=== PATIENT | female | born 1970 | race Hispanic/Latino ===

== ENCOUNTER 2017-04-02 14:57 | Emergency (ER) | payer OTHER ==
[2017-04-02 15:09] VITALS: BP 144/78; PULSE 98; RESP 20; TEMP 99.2; O2SAT 98
--- NOTE | 2017-04-02 15:54 | ED PDOC ---
Lower Extremity Pain/Injury Time Seen by Provider: 04/02/17 15:13 Chief Complaint (Nursing): Lower Extremity Problem/Injury Chief Complaint (Provider): Lower Extremity Problem/Injury History Per: Patient History/Exam Limitations: no limitations Onset/Duration Of Symptoms: Days (x5 days) Additional Complaint(s): 46 y/o female presents to the emergency department with a complaint of swelling to the left lower leg and upper right thigh pain since , 03/29/2017. Patient states she is concerned due to history of Deep Vein Thrombosis. Reports she bought size 10 shoes which were slightly tight and believes that is why she is experiencing pain. Denies any further medical complaints. Past Medical History Reviewed: Historical Data, Nursing Documentation, Vital Signs Vital Signs: Last Vital Signs Temp 99.2 F 04/02/17 15:04 Pulse 98 H 04/02/17 15:04 Resp 20 04/02/17 15:04 BP 144/78 04/02/17 15:04 Pulse Ox 98 04/02/17 15:04 - Medical History PMH: Deep Vein Thrombosis (right leg) - Surgical History Surgical History: No Surg Hx - Family History Family History: States: Unknown Family Hx - Social History Current smoker - smoking cessation education provided: No Alcohol: None Drugs: Denies - Allergies Allergies/Adverse Reactions: Allergies Allergy/AdvReac Type Severity Reaction Status Date / Time Penicillins Allergy Mild RASH Verified 04/02/17 15:09 Review of Systems ROS Statement: Except As Marked, All Systems Reviewed And Found Negative Musculoskeletal: Positive for: Leg Pain (Left lower leg edema), Other (Upper right thigh pain) Physical Exam - Reviewed Nursing Documentation Reviewed: Yes Vital Signs Reviewed: Yes - Physical Exam Appears: Positive for: Non-toxic, No Acute Distress Head Exam: Positive for: ATRAUMATIC, NORMAL INSPECTION, NORMOCEPHALIC Skin: Positive for: Normal Color, Warm, Dry Eye Exam: Positive for: Normal appearance ENT: Positive for: Normal ENT Inspection Extremity: Positive for: Normal ROM. Negative for: Tenderness, Calf Tenderness , Swelling (No lower leg edema noted ), Other (No palpable masses. No erythema of the legs bilaterally. No lesions noted. ) Neurologic/Psych: Positive for: Alert, Oriented - ECG O2 Sat by Pulse Oximetry: 98 (RA) Pulse Ox Interpretation: Normal Medical Decision Making Medical Decision Making: Time: 15:46 Initial Impression: Lower extremities problem Initial Plan: --Duplex Lower Extrm Vein Bilat (US) US (-) for DVT Scribe Attestation: Documented by Lisa Irizarry, acting as a scribe for Lisa Vinson PA-C. Provider Scribe Attestation: All medical record entries made by the Scribe were at my direction and personally dictated by me. I have reviewed the chart and agree that the record accurately reflects my personal performance of the history, physical exam, medical decision making, and the department course for this patient. I have also personally directed, reviewed, and agree with the discharge instructions and disposition. Disposition - Clinical Impression Clinical Impression: Lower leg edema - Disposition Referrals: [facility] [Outside] Disposition: Routine/Home Disposition Time: 16:27 Condition: GOOD Instructions: Leg Edema (ED)
--- NOTE | 2017-04-02 16:27 | US ---
PROCEDURE: Bilateral lower extremity venous duplex Doppler. HISTORY: Left lower leg swelling, history of DVT COMPARISON: None available. TECHNIQUE: Bilateral common femoral, superficial femoral, popliteal and posterior tibial veins were evaluated. Flow was assessed with color Doppler, compressibility, assessment of phasic flow and augmentation response. FINDINGS: COMMON FEMORAL VEIN: Right CFV: Unremarkable. Left CFV: Unremarkable. SUPERFICIAL FEMORAL VEIN: Right SFV: Unremarkable. Left SFV: Unremarkable. POPLITEAL VEIN: Right Popliteal: Unremarkable. Left Popliteal: Unremarkable. POSTERIOR TIBIAL VEIN: Right PTV: Unremarkable. Left PTV: Unremarkable. OTHER FINDINGS: None. IMPRESSION: No evidence of deep venous thrombosis.
== END 2017-04-02 16:44 | disposition home or self-care (01) ==
LOC: H.ER 14:57
DX: R60.0 Localized edema (principal); Z86.718 Personal history of other venous thrombosis and embolism

== ENCOUNTER 2017-04-18 11:19 | Emergency (ER) | payer OTHER ==
[2017-04-18 11:36] VITALS: BP 133/84; PULSE 90; RESP 18; TEMP 98; O2SAT 98
--- NOTE | 2017-04-18 13:42 | ED PDOC ---
HPI: SOB/CHF/COPD Time Seen by Provider: 04/18/17 12:49 Chief Complaint (Nursing): Shortness Of Breath Chief Complaint (Provider): Shortness of Breath History Per: Patient History/Exam Limitations: no limitations Onset/Duration Of Symptoms: Days (2 days) Current Symptoms Are (Timing): Still Present Associated Symptoms: denies: Fever, Chest Pain Additional Complaint(s): Annamaria Schwartz, a 46 year old female, who has a past medical history of deep vein thrombosis, Paroxysmal nocturnal hemoglobinuria and aplastic anemia presents to the ED complaining of shortness of breath x2 days. The patient reports she has had shallow breathing and is also feeling lightheaded. She further states that she had a blood transfusion in 2011. Denies chest pain, cough, palpitations, fever, new leg swelling. Of note: Patient is taking Xarelto. Past Medical History Reviewed: Historical Data, Nursing Documentation, Vital Signs Vital Signs: Last Vital Signs Temp 98 F 04/18/17 11:33 Pulse 90 04/18/17 11:33 Resp 18 04/18/17 11:33 BP 133/84 04/18/17 11:33 Pulse Ox 98 04/18/17 17:19 - Medical History PMH: Anemia (Aplastic anemia), Deep Vein Thrombosis (right leg) Other PMH: Paroxysmal nocturnal hemoglobinuria - Family History Family History: States: Unknown Family Hx - Allergies Allergies/Adverse Reactions: Allergies Allergy/AdvReac Type Severity Reaction Status Date / Time Penicillins Allergy Mild RASH Verified 04/18/17 11:33 Review of Systems ROS Statement: Except As Marked, All Systems Reviewed And Found Negative Constitutional: Negative for: Fever Cardiovascular: Positive for: Light Headedness. Negative for: Chest Pain, Palpitations Respiratory: Positive for: Shortness of Breath (shallow breathing). Negative for: Cough Physical Exam - Reviewed Nursing Documentation Reviewed: Yes Vital Signs Reviewed: Yes - Physical Exam Appears: Positive for: Non-toxic, No Acute Distress Head Exam: Positive for: ATRAUMATIC, NORMAL INSPECTION, NORMOCEPHALIC Skin: Positive for: Normal Color, Warm, Dry Eye Exam: Positive for: Normal appearance, EOMI, PERRL ENT: Positive for: Normal ENT Inspection Neck: Positive for: Normal, Painless ROM, Supple Respiratory: Positive for: Normal Breath Sounds, Decreased Breath Sounds. Negative for: Wheezing, Respiratory Distress Gastrointestinal/Abdominal: Positive for: Normal Exam, Bowel Sounds, Soft. Negative for: Tenderness, Guarding, Rebound Back: Positive for: Normal Inspection. Negative for: L CVA Tenderness, R CVA Tenderness Extremity: Positive for: Normal ROM. Negative for: Tenderness, Pedal Edema, Deformity, Swelling (No leg swelling.) Neurologic/Psych: Positive for: Alert, Oriented, Gait - Laboratory Results Result Diagrams: 04/18/17 13:10 04/18/17 13:10 - ECG O2 Sat by Pulse Oximetry: 98 (RA) Pulse Ox Interpretation: Normal Medical Decision Making Medical Decision Makin:49 Initial Impression: 46 year old female presenting with shortness of breath Initial Plan: * ABO/RH type * Type and Screen * EKG * Comp Metabolic * CBC * D-Dimer * PTT * Prothrombin time * CXR * US Duplex Lower Extremity * Reevaluation Scribe Attestation Documented by Sania Adames acting as a scribe for Jessica Noel MD. Provider Attestation All medical record entries made by the Scribe were at my direction and personally dictated by me. I have reviewed the chart and agree that the record accurately reflects my personal performance of the history, physical exam, medical decision making, and the department course for this patient. I have also personally directed, reviewed, and agree with the discharge instructions and disposition. Disposition - Clinical Impression Clinical Impression: Dyspnea - Disposition Referrals: [facility] [Outside] Disposition: Transfer of Care Disposition Time: 17:00 Condition: STABLE Instructions: Pulmonary Embolism (DC) Patient Signed Over To: Anatoly Contreras Handoff Comments: Pending CT.
[2017-04-18 14:03] LABS: BASO % 0.6 % (0.0-2.0); EOS % 0.9 % (0.0-4.0); HEMOGLOBIN 9.7 g/dL (12.0-16.0); LYMPH % 35.8 % (20.0-40.0); MEAN CELL VOLUME 107.4 fl (81.0-99.0); MEAN CORPUSCULAR HEMOGLOBIN 35.3 pg (27.0-31.0); MEAN CORPUSCULAR HGB CONC 32.9 g/dL (33.0-37.0); MEAN PLATELET VOLUME 9.2 fl (7.2-11.7); MONO # 0.3 K/uL (0.0-0.8); MONO % 11.1 % (0.0-10.0); NEUT # 1.5 K/uL (1.8-7.0); NEUT % 51.6 % (50.0-75.0); RBC 2.74 Mil/uL (3.80-5.20); RED CELL DISTRIBUTION WIDTH 16.7 % (11.5-14.5); WHITE BLOOD COUNT 2.8 K/uL (4.8-10.8)
--- NOTE | 2017-04-18 14:05 | RAD ---
HISTORY: Shortness of breath COMPARISON: No prior. TECHNIQUE: Chest PA and lateral FINDINGS: LUNGS: The lungs are well inflated and clear. PLEURA: No significant pleural effusion identified. No pneumothorax apparent. CARDIOVASCULAR: Normal. OSSEOUS STRUCTURES: No significant abnormalities. VISUALIZED UPPER ABDOMEN: Normal. OTHER FINDINGS: None. IMPRESSION: No active pulmonary disease.
[2017-04-18 14:08] LABS: ALB/GLOB RATIO 1.4 (1.0-2.1); ALBUMIN 4.2 g/dL (3.5-5.0); ALT/SGPT 37 U/L (9-52); AST/SGOT 74 U/L (14-36); BLOOD UREA NITROGEN 17 mg/dl (7-17); CALCIUM 9.2 mg/dL (8.4-10.2); GFR AFRICAN-AMERICAN > 60; GFR NON-AFRICAN AMERICAN > 60
[2017-04-18 14:32] LABS: INR 0.9 (0.9-1.2); PARTIAL THROMBOPLASTIN TIME 26.9 Seconds (25.6-37.1); PROTHROMBIN TIME 10.2 Seconds (9.8-13.1)
--- NOTE | 2017-04-18 16:10 | US ---
PROCEDURE: Bilateral lower extremity venous duplex Doppler. HISTORY: Shortness of breath COMPARISON: None available. TECHNIQUE: Bilateral common femoral, superficial femoral, popliteal and posterior tibial veins were evaluated. Flow was assessed with color Doppler, compressibility, assessment of phasic flow and augmentation response. FINDINGS: COMMON FEMORAL VEIN: Right CFV: Normal flow and compressibility. Left CFV: Normal flow and compressibility. SUPERFICIAL FEMORAL VEIN: Right SFV: Normal flow and compressibility. Left SFV: Normal flow and compressibility. POPLITEAL VEIN: Right Popliteal: Normal flow and compressibility. Left Popliteal: Normal flow and compressibility. POSTERIOR TIBIAL VEIN: Right PTV: Normal flow and compressibility. Left PTV: Normal flow and compressibility. OTHER FINDINGS: None. IMPRESSION: No evidence of deep venous thrombosis.
--- NOTE | 2017-04-18 16:11 | CARD ---
APPROVED REPORT EKG Measurement Heart [id number] TX [id number] <Conclusion> Suspect arm lead reversal, interpretation assumes no reversal Unusual P axis, possible ectopic atrial rhythm Left posterior fascicular block Abnormal ECG
[2017-04-18] MEDS ORDERED: Iodixanol 320 MG/ML 100 ML BOTTLE IV ONE (16:28)
[2017-04-18] MEDS ORDERED: Sodium Chloride 0.9% 0 ML IV ONE (16:29)
--- NOTE | 2017-04-18 17:18 | ED PDOC ---
- Laboratory Results Result Diagrams: 04/18/17 13:10 04/18/17 13:10 - ECG O2 Sat by Pulse Oximetry: 98 (RA) Medical Decision Making Medical Decision Making: Pt advised to have CTA chest to rule out blood clot in lungs as she is at high risk for developing PE. Pt aware of risks icluding PE and but wants to sign AMA Disposition - Clinical Impression Clinical Impression: Dyspnea - POA Present On Arrival: None - Disposition Referrals: [facility] [Outside] Disposition: AGAINST MEDICAL ADVICE Disposition Time: 17:18 Condition: FAIR Instructions: Pulmonary Embolism (DC)
== END 2017-04-18 17:53 | disposition home or self-care (01) ==
LOC: H.ER 11:19
DX: R06.00 Dyspnea, unspecified (principal); Z86.72 Personal history of thrombophlebitis; D61.9 Aplastic anemia, unspecified; R42 Dizziness and giddiness

== ENCOUNTER 2017-07-17 19:43 | Observation (INO) | payer OTHER ==
--- NOTE | 2017-07-17 21:06 | ED PDOC ---
HPI: Abdomen Time Seen by Provider: 07/17/17 20:10 Chief Complaint (Nursing): GI Problem Chief Complaint (Provider): Blood in stool History Per: Patient History/Exam Limitations: no limitations Onset/Duration Of Symptoms: Intermittent Episodes Current Symptoms Are (Timing): Still Present Quality Of Discomfort: Gas, Other (Feels bloate) Additional Complaint(s): Annamaria is a 47 y/o female with a past medical history of paroxysmal nocturnal hemoglobinuria (PNH) who presents to the ED complaining of hematochezia, occurring intermittently over the past month. Also complaining of constipation and gas. Denies abdominal pain, vomiting, nausea, diarrhea, and fever. States that she has felt fatigued recently as well. She reports taking 20 mg of Xarelto daily for her PNH. Of note, patient is requesting that her marking machine operator be called. Weigh Machine Operator: Dr. Jovi Diaz at [facility] [phone] Past Medical History Reviewed: Historical Data, Nursing Documentation, Vital Signs Vital Signs: Last Vital Signs Temp 98 F 07/17/17 19:50 Pulse 113 H 07/17/17 19:50 Resp 18 07/17/17 19:50 BP 154/99 H 07/17/17 19:50 Pulse Ox 98 07/17/17 23:14 - Medical History PMH: Anemia (Aplastic anemia), Deep Vein Thrombosis (right leg), Malignancy ( uterine cancer) Other PMH: Paroxysmal nocturnal hemoglobinuria, bone marrow failure - Surgical History Other surgeries: Hysterectomy - Family History Family History: States: Unknown Family Hx - Social History Current smoker - smoking cessation education provided: No Alcohol: None Drugs: Denies - Home Medications Home Medications: Ambulatory Orders Medication Instructions Recorded Rivaroxaban [Xarelto] 20 mg PO DAILY 07/17/17 - Allergies Allergies/Adverse Reactions: Allergies Allergy/AdvReac Type Severity Reaction Status Date / Time Penicillins Allergy Mild RASH Verified 07/17/17 19:50 Review of Systems ROS Statement: Except As Marked, All Systems Reviewed And Found Negative Constitutional: Positive for: Other (Fatigue). Negative for: Fever Respiratory: Negative for: Cough, Shortness of Breath Gastrointestinal: Positive for: Constipation, Hematochezia, Other (Gas, bloating ). Negative for: Nausea, Vomiting, Abdominal Pain, Diarrhea Physical Exam - Reviewed Nursing Documentation Reviewed: Yes Vital Signs Reviewed: Yes - Physical Exam Appears: Positive for: Non-toxic, No Acute Distress Head Exam: Positive for: ATRAUMATIC, NORMAL INSPECTION, NORMOCEPHALIC Skin: Positive for: Normal Color, Warm, Dry Eye Exam: Positive for: EOMI, Normal appearance, PERRL Neck: Positive for: Normal, Supple Cardiovascular/Chest: Positive for: Regular Rate, Rhythm. Negative for: Murmur Respiratory: Positive for: Normal Breath Sounds. Negative for: Accessory Muscle Use, Respiratory Distress Gastrointestinal/Abdominal: Positive for: Normal Exam, Soft. Negative for: Tenderness Extremity: Positive for: Normal ROM. Negative for: Pedal Edema, Deformity Neurologic/Psych: Positive for: Alert, Oriented - Laboratory Results Result Diagrams: 07/17/17 21:11 07/17/17 21:11 - ECG O2 Sat by Pulse Oximetry: 98 (RA) Pulse Ox Interpretation: Normal Medical Decision Making Medical Decision Making: Time: 20:48 Initial Plan: --Blood type and screen --CMP --CBC --Guiac stool test --Pending reevaluation Time: 22:10 --Spoke with Dr. Lacy, who knows patient well. Labs were reviewed. Due to possible GI bleed, He requested we order iron studies, discontinue Xarelto for now, and if we need to transfuse, need to transfuse with the exact blood type of patient, transfuse with an irradiated salted blood product, Also requesting patient be admitted with GI and Hematology consults. Dr Villasenor accepted admission pt aware of admission Scribe Attestation: Documented by Basilia Michelle, acting as a scribe for Carline Kent MD Provider Scribe Attestation: All medical record entries made by the Scribe were at my direction and personally dictated by me. I have reviewed the chart and agree that the record accurately reflects my personal performance of the history, physical exam, medical decision making, and the department course for this patient. I have also personally directed, reviewed, and agree with the discharge instructions and disposition. Disposition - Disposition Forms: [employer] (Kiswahili)
[2017-07-17 21:21] LABS: BASO % 0.9 % (0.0-2.0); EOS # 0.1 K/uL (0.0-0.7); EOS % 1.2 % (0.0-4.0); HEMATOCRIT 30.8 % (34.0-47.0); LYMPH % 46.4 % (20.0-40.0); MEAN CELL VOLUME 107.7 fl (81.0-99.0); MEAN CORPUSCULAR HEMOGLOBIN 35.7 pg (27.0-31.0); MEAN CORPUSCULAR HGB CONC 33.1 g/dL (33.0-37.0); MEAN PLATELET VOLUME 9.9 fl (7.2-11.7); MONO # 0.4 K/uL (0.0-0.8); MONO % 9.8 % (0.0-10.0); NEUT # 1.8 K/uL (1.8-7.0); NEUT % 41.7 % (50.0-75.0); NRBC % 0.1 % (0.0-0.0); RED CELL DISTRIBUTION WIDTH 16.4 % (11.5-14.5); WHITE BLOOD COUNT 4.3 K/uL (4.8-10.8)
[2017-07-17 21:32] LABS: ALB/GLOB RATIO 1.5 (1.0-2.1); ALKALINE PHOSPHATASE 82 U/L (38-126); ALT/SGPT 32 U/L (9-52); AST/SGOT 81 U/L (14-36); BILIRUBIN,TOTAL 1.5 mg/dl (0.2-1.3); BLOOD UREA NITROGEN 16 mg/dl (7-17); CALCIUM 9.1 mg/dL (8.4-10.2); CARBON DIOXIDE 27 mmol/L (22-30); CHLORIDE 104 mmol/L (98-107); GFR AFRICAN-AMERICAN > 60; GLUCOSE,RANDOM 93 mg/dL (65-105); POTASSIUM 4.3 MMOL/L (3.6-5.0); SODIUM 143 mmol/l (132-148); TOTAL PROTEIN 7.4 G/DL (6.3-8.2)
[2017-07-18 01:39] LABS: IRON < 10 ug/dL (37-170)
[2017-07-18 07:37] VITALS: BP 116/78; PULSE 77; RESP 20; TEMP 97.7; O2SAT 18
[2017-07-18 08:48] LABS: HEMATOCRIT 28.4 % (34.0-47.0); MEAN CELL VOLUME 106.8 fl (81.0-99.0); MEAN CORPUSCULAR HEMOGLOBIN 35.9 pg (27.0-31.0); MEAN CORPUSCULAR HGB CONC 33.6 g/dL (33.0-37.0); RED CELL DISTRIBUTION WIDTH 16.2 % (11.5-14.5); WHITE BLOOD COUNT 2.9 K/uL (4.8-10.8)
--- NOTE | 2017-07-18 12:51 | CP.PCM.CON ---
History of Present Illness - History of Present Illness History of Present Illness: This is a 47 yrs old female who was admitted with rectal bleeding. She has had some rectal bleeding off and on for the past i week . At times it was just a little but yesterday she saw a fir amount of blood in the toilet bowl. There is no pain in the abdomen but she feels gassy. No h/o diverticulitis. she has a h/o PNH since 2011 . She has not received any treatment for the same because her count has been more or less in the normal range. After admission her hgb was 9.5 gms with a platelet count of 89K and WBC of 2.9. She has also had periods of hemolysis off and on which is part of the disease process This time her retic was 5.8 with bilirubin of 1.5. LDH and haptoglobin is pending. She is also waiting to see the Syrup Blender. She had a fracture of her 5th metatarsal and had to wear a boot for a while, so the immobilisation caused her to have a DVT or the right lower extremity. She was plaxced on the xarelto, but was discontinued on admission because of trhe gi bleed. She also has a h/o early endometrial cancer for which she had a a hysterectomy with bilat salpingo oophrectomy No other treatment was needed. Past Patient History - Past Medical History & Family History Past Medical History?: Yes - Past Social History Smoking Status: Never Smoked - CARDIAC Hx Cardiac Disorders: No - PULMONARY Hx Respiratory Disorders: No - NEUROLOGICAL Hx Neurological Disorder: No - HEMATOLOGICAL/ONCOLOGICAL Hx Blood Disorders: Yes Other/Comment: PNH, uterine cancer, bone marrow failure - MUSCULOSKELETAL/RHEUMATOLOGICAL Hx Falls: Yes - GENITOURINARY/GYNECOLOGICAL Hx Uterine Cancer: Yes Other/Comment: hx; pnh - PSYCHIATRIC Hx Substance Use: No - SURGICAL HISTORY Hx Hysterectomy: Yes - ANESTHESIA Hx Anesthesia: Yes Hx Anesthesia Reactions: No Meds Allergies/Adverse Reactions: Allergies Allergy/AdvReac Type Severity Reaction Status Date / Time Penicillins Allergy Mild RASH Verified 07/17/17 19:50 - Medications Medications: Current Medications Dextrose/Sodium Chloride (Dextrose 5%-0.45% Ns 500 Ml) 500 mls @ 100 mls/hr IV .Q5H ESTEBAN Stop: 07/19/17 06:49 Last Admin: 07/18/17 08:53 Dose: 100 mls/hr Pantoprazole Sodium (Protonix Inj) 40 mg IVP Q12 ESTEBAN Last Admin: 07/18/17 09:39 Dose: 40 mg Physical Exam - Additional Findings Additional findings: Physical exam; Alert,well oriented in no acute distress. neck; Suppkle, rashi adenopathy Chest; clear, no rales or rhonchi Heart; RSR, no murmur Abdomen; Soft, no mass, no h/s megaly Results - Vital Signs Recent Vital Signs: Last Vital Signs Temp 97.7 F 07/18/17 07:36 Pulse 77 07/18/17 07:36 Resp 20 07/18/17 07:36 BP 116/78 07/18/17 07:36 Pulse Ox 18 L 07/18/17 07:36 - Labs Result Diagrams: 07/18/17 08:00 07/17/17 21:11 Labs: Laboratory Results - last 24 hr 07/17/17 07/17/17 07/17/17 21:11 21:11 21:11 WBC 4.3 L D RBC 2.86 L Hgb 10.2 L Hct 30.8 L MCV 107.7 H MCH 35.7 H MCHC 33.1 RDW 16.4 H Plt Count 117 L D MPV 9.9 Neut % (Auto) 41.7 L Lymph % (Auto) 46.4 H School[place] % (Auto) 9.8 Eos % (Auto) 1.2 Baso % (Auto) 0.9 Neut # 1.8 Lymph # 2.0 Schoolcraft # 0.4 Eos # 0.1 Baso # 0.0 Retic Count Sodium 143 Potassium 4.3 Chloride 104 Carbon Dioxide 27 Anion Gap 17 BUN 16 Creatinine 0.9 Est GFR ( Amer) > 60 Est GFR (Non-Af Amer) > 60 Random Glucose 93 Calcium 9.1 Iron TIBC % Saturation Total Bilirubin 1.5 H AST 81 H ALT 32 Alkaline Phosphatase 82 Lactate Dehydrogenase Total Protein 7.4 Albumin 4.5 Globulin 3.0 Albumin/Globulin Ratio 1.5 Stool Occult Blood Blood Type A POSITIVE Antibody Screen Negative BBK History Checked Patient has bt 07/17/17 07/17/17 07/17/17 22:57 23:03 23:03 WBC RBC Hgb Hct MCV MCH MCHC RDW Plt Count MPV Neut % (Auto) Lymph % (Auto) Schoolcraft % (Auto) Eos % (Auto) Baso % (Auto) Neut # Lymph # Schoolcraft # Eos # Baso # Retic Count 5.8 H Sodium Potassium Chloride Carbon Dioxide Anion Gap BUN Creatinine Est GFR ( Amer) Est GFR (Non-Af Amer) Random Glucose Calcium Iron < 10 L TIBC % Saturation Total Bilirubin AST ALT Alkaline Phosphatase Lactate Dehydrogenase Total Protein Albumin Globulin Albumin/Globulin Ratio Stool Occult Blood Negative Blood Type Antibody Screen BBK History Checked 07/18/17 07/18/17 07/18/17 00:30 08:00 09:50 WBC 2.9 L RBC 2.65 L Hgb 9.5 L Hct 28.4 L MCV 106.8 H MCH 35.9 H MCHC 33.6 RDW 16.2 H Plt Count 89 L D MPV Neut % (Auto) Lymph % (Auto) Schoolcraft % (Auto) Eos % (Auto) Baso % (Auto) Neut # Lymph # Schoolcraft # Eos # Baso # Retic Count Sodium Potassium Chloride Carbon Dioxide Anion Gap BUN Creatinine Est GFR ( Amer) Est GFR (Non-Af Amer) Random Glucose Calcium Iron < 10 L TIBC 159 L % Saturation 11 L Total Bilirubin AST ALT Alkaline Phosphatase Lactate Dehydrogenase 3389 H Total Protein Albumin Globulin Albumin/Globulin Ratio Stool Occult Blood Blood Type Antibody Screen BBK History Checked Assessment & Plan - Assessment and Plan (Free Text) Assessment: Impression; Paroxysmal nocturnal hemoglobinuria, stable disease. Lower Gi bleeding, etiology to be determined. H/O DVT after a right foot fracture Plan: Plan; Will continue to hold the xarelto for now. Have ordered LDH and Haptoglobin to see if there is much hemolysis Monitor CBC - Date & Time Date: 07/18/17 Time: 13:10
--- NOTE | 2017-07-18 15:08 | CP.PCM.PCO ---
Assessment/Plan - Assessment/Plan Assessment (Free Text): Pt stable, seen and cleared for d/c home by all consultants. Pt to f/u with own accountant budget in 1 week. Pt's to resume Xarelto per her own MD. Pt to f/u with Dr. Coronel on a outpatient basis. Pt aware to f/u with own MD to resume her meds. RN aware of plan.
--- NOTE | 2017-07-19 07:28 | DS ---
REASON FOR ADMISSION: This is a 47 years old white female with history of paroxysmal nocturnal hemoglobinuria, was on Xarelto, admitted for rectal bleeding. COURSE OF HOSPITALIZATION: The patient was admitted to medical floor and patient did not have any further bleeding as she was in the floor. The patient was seen by Hematology consult, Dr. Elina Simon and by GI consult, Dr. Ceasar Coronel. The patient was cleared for discharge, to have colonoscopy done as an outpatient and further recommendations as per new autos delivery driver in [facility]. The patient was discharged in stable condition and no further rectal bleeding. Tolerated regular diet. FINAL DIAGNOSES: 1. History of rectal bleeding with no active bleeding after admission. 2. History of paroxysmal nocturnal hemoglobinuria. Angeline MD Hamilton
--- NOTE | 2017-07-19 08:28 | CON ---
DATE OF SERVICE: 07/18/2017 REFERRING PHYSICIAN: Dr. Brown REASON FOR CONSULTATION: Anemia, rectal bleeding. HISTORY OF PRESENT ILLNESS: This is a 47-year-old female who has a history of paroxysmal nocturnal hematuria, being followed up by hematology over at [facility], comes in for episode of rectal bleeding after having a really particularly hard bowel movement. She has had some rectal bleeding now for the past week or so with chronic constipation . Denies any weight loss. No heartburn or reflux. Currently, lying in bed comfortably, in no apparent distress. The patient is currently on a blood thinner as well. PAST MEDICAL HISTORY: As above. PAST SURGICAL HISTORY: As above. MEDICATIONS: Have been reviewed. REVIEW OF SYSTEMS: All other systems have been reviewed and negative apart from the HPI. PHYSICAL EXAMINATION: VITAL SIGNS: In the hospital, grossly unremarkable. GENERAL: Pleasant elderly-appearing male, lying in bed comfortable, in no apparent distress. HEENT: Head is normocephalic and atraumatic. Eyes, pupils are equal, round, and reactive to light bilaterally. No conjunctival pallor or icterus. NECK: Supple. Normal range of motion. No lymphadenopathy appreciated. LUNGS: Coarse breath sounds bilaterally. HEART: S1 and S2, regular rate and rhythm. No murmurs appreciated. ABDOMEN: Soft, nontender, some fullness, but no pain. RECTAL: Deferred. EXTREMITIES: Pulses felt bilaterally. SKIN: Warm, dry, and intact. NEUROLOGIC: A and O x3. LABORATORY DATA: Labs reviewed, WBC 4.3, down to 2.9, hemoglobin 10.2, reticulocyte count 5.8, iron less than 10, LDH 389. ASSESSMENT AND PLAN: This is a 47-year-old female with anemia and rectal bleeding. The rectal bleeding is more likely due to the hemorrhoid as she is chronically constipation. She does warrant definitely having a colonoscopy and endoscopy at some point, but needs to be observed at least for 2 days, which she is agreeable to follow up with me as an outpatient to do so. From the standpoint of the anemia, I suspect this is much more insidious and chronic. There is pancytopenia as evidenced on the CBC as well as markedly elevated LDH. We will defer to Hematology for further workup and management. From a gastrointestinal standpoint, advance diet as tolerated, stool softeners as needed, and colonoscopy to be planned as an outpatient or sooner if the patient continues to bleed. Thank you for the consult. Ceasar Coronel MD/ PhD cc:
--- NOTE | 2017-07-20 08:28 | HP ---
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 The patient presented to emergency room for rectal bleeding x1. The patient was evaluated in the emergency room and the patient's financial health counselor in DCU was contacted by the ER physician. Xarelto was advised to be stopped and the patient was admitted for further management. The patient denied having abdominal pain, denied having any further rectal bleeding after admission. Other review of systems is negative. ALLERGIES: PENICILLIN. HOME MEDICATIONS: Includes Xarelto 20 mg daily. PAST MEDICAL HISTORY: As above. SOCIAL HISTORY: No history of smoking, ETOH, or substance abuse. FAMILY HISTORY: Noncontributory. PHYSICAL EXAMINATION: GENERAL: The patient is in bed, not in any cardiopulmonary distress. VITAL SIGNS: Blood pressure 127/84, temperature 97.8, respiratory rate 19, and pulse 83. HEENT: Pupils equal and reactive to light. Normal appearing mucosa of the conjunctivae, oropharyngeal, and nasal membrane mucosa. NECK: Supple. No JVD. No carotid bruit. No lymph node. No thyromegaly. CHEST AND LUNGS: Bilaterally symmetrical expansion with good air exchange. No rales. No rhonchi. CARDIOVASCULAR: PMI not localized. S1 and S2. No additional sounds. ABDOMEN: Normoactive bowel sounds. No tenderness. No organomegaly. No masses. EXTREMITIES: No cyanosis. No clubbing. No edema. CARDIOVASCULAR PHYSICIAN ASSISTANT: Alert, awake, and oriented x3. No neurological deficits could be appreciated. LABORATORY DATA: Hemoglobin dropped from 10.2 to 9.5. The patient did not have any active rectal bleeding at the time of this examination. ASSESSMENT: Rectal bleeding and the patient is on Xarelto for treatment as an anticoagulant as the patient has paroxysmal nocturnal hemoglobinuria. PLAN: GI consult. We will follow recommendation. Hematology consult. Monitor hemoglobin and hematocrit. Loan Villasenor MD
== END 2017-07-18 16:30 | disposition home or self-care (01) ==
LOC: H.ER 19:43 → H.ERHOLD 23:15 → H.MEDSURG1 07-18 00:55
PROVIDERS: ADMIT Internal Medicine; ATTEND Internal Medicine
DX: D59.5 Paroxysmal nocturnal hemoglobinuria [Marchiafava-Micheli] (principal); D61.818 Other pancytopenia; K59.00 Constipation, unspecified; Z86.718 Personal history of other venous thrombosis and embolism; Z87.81 Personal history of (healed) traumatic fracture; Z79.01 Long term (current) use of anticoagulants; Z85.42 Personal history of malignant neoplasm of other parts of uterus; Z90.710 Acquired absence of both cervix and uterus
CPT/HCPCS: 36415; 80053; 83010; 83540; 83550; 83615; 85025; 85027; 85044; 86850; 86900; 99283; C9113; G0328; G0378

== ENCOUNTER 2017-07-22 13:29 | Emergency (ER) | payer OTHER ==
[2017-07-22 13:50] VITALS: BP 150/82; PULSE 92; RESP 18; TEMP 98.8; O2SAT 99
[2017-07-22] MEDS ORDERED: Sodium Chloride 0.9% 1,000 ML IV STA (14:05)
--- NOTE | 2017-07-22 14:14 | ED PDOC ---
HPI: Abdomen Time Seen by Provider: 07/22/17 13:43 Chief Complaint (Nursing): GI Problem Chief Complaint (Provider): Blood in stool History Per: Patient History/Exam Limitations: no limitations Onset/Duration Of Symptoms: Days (x5) Current Symptoms Are (Timing): Still Present Additional Complaint(s): Annamaria Schwartz is a 47 y/o female who presents to the ED complaining of a small amount of bleeding in her stool, consistent since discharge last Sunday. Patient has a history of DVT, paroxysmal nocturnal hemoglobinuria, and aplastic anemia, and had been taking Xarelto until admission last week. Has not taken medication since discharge. Reports mild abdominal bloating, no pain. Feels tired and weak. PMD: Provider TBD Past Medical History Reviewed: Historical Data, Nursing Documentation, Vital Signs Vital Signs: Last Vital Signs Temp 98.8 F 07/22/17 13:44 Pulse 92 H 07/22/17 13:44 Resp 18 07/22/17 13:44 BP 150/82 07/22/17 13:44 Pulse Ox 99 07/22/17 15:58 - Medical History PMH: Anemia (Aplastic anemia), Deep Vein Thrombosis (right leg), Malignancy ( uterine cancer) Other PMH: paroxysmal nocturnal hemoglobinuria (PNH) - Surgical History Other surgeries: Hysterectomy - Family History Family History: States: Unknown Family Hx - Home Medications Home Medications: Ambulatory Orders Medication Instructions Recorded Rivaroxaban [Xarelto] 20 mg PO DAILY 07/17/17 - Allergies Allergies/Adverse Reactions: Allergies Allergy/AdvReac Type Severity Reaction Status Date / Time Penicillins Allergy Mild RASH Verified 07/22/17 13:59 Review of Systems ROS Statement: Except As Marked, All Systems Reviewed And Found Negative Constitutional: Positive for: Weakness (generalized) Gastrointestinal: Positive for: Hematochezia, Other (abdominal bloating). Negative for: Vomiting, Abdominal Pain, Diarrhea Physical Exam - Reviewed Nursing Documentation Reviewed: Yes Vital Signs Reviewed: Yes - Physical Exam Appears: Positive for: Non-toxic, No Acute Distress Head Exam: Positive for: ATRAUMATIC, NORMOCEPHALIC Skin: Positive for: Normal Color, Warm, Dry Eye Exam: Positive for: EOMI, Normal appearance, PERRL Neck: Positive for: Normal, Painless ROM, Supple Cardiovascular/Chest: Positive for: Regular Rate, Rhythm. Negative for: Murmur Respiratory: Positive for: Normal Breath Sounds. Negative for: Accessory Muscle Use, Respiratory Distress Gastrointestinal/Abdominal: Positive for: Soft, Tenderness (mild tenderness to lower quadrants bilaterally) Extremity: Positive for: Normal ROM. Negative for: Tenderness, Calf Tenderness , Deformity, Swelling Neurologic/Psych: Positive for: Alert, Oriented (x3). Negative for: Motor/ Sensory Deficits - Laboratory Results Result Diagrams: 07/22/17 14:35 07/22/17 14:45 - ECG O2 Sat by Pulse Oximetry: 99 (RA) Pulse Ox Interpretation: Normal Medical Decision Making Medical Decision Making: Time: 14:05 Initial Plan: --EKG --CMP --CBC w/ differential --Prothrombin time --NS IV 1000 ml at 100 mls/hr Patient reports she was supposed to be scheduled for outpatient colonoscopy upon discharge last week. She requests to have colonoscopy moved up to tomorrow , as inpatient procedure. Patient has been unable to follow up with space control supervisor at [facility], and is questioning when to resume taking Xarelto. Time: 15:15 --Discussed case with Dr. Villasenor, who reports he will only admit patient if colonoscopy will be scheduled tomorrow with GI specialist. Time: 15:30 --Paged Dr. Coronel for GI consult Time: 15:43 --Call returned by Dr. Coronel, who recommends to keep colonoscopy as outpatient procedure, which will be scheduled mid-week. Discussed with Dr. Mckayla Gonzalez/Onc [facility]. Will see pt in office tomorrow 9AM. Discussed with Dr Coronel, pt can be discharged and he will arrange to do colonoscopy with pt. Scribe Attestation: Documented by Basilia Michelle, acting as a scribe for Anatoly Contreras MD Provider Scribe Attestation: All medical record entries made by the Scribe were at my direction and personally dictated by me. I have reviewed the chart and agree that the record accurately reflects my personal performance of the history, physical exam, medical decision making, and the department course for this patient. I have also personally directed, reviewed, and agree with the discharge instructions and disposition. Disposition - Clinical Impression Clinical Impression: GI bleed - Patient ED Disposition Is Patient to be Admitted: No Counseled Patient/Family Regarding: Studies Performed, Diagnosis, Need For Followup - Disposition Disposition: Routine/Home Disposition Time: 16:13 Condition: FAIR Additional Instructions: Follow up with Dr. Block in office tomorrow 9AM Instructions: Gastrointestinal Bleeding (ED) Forms: [employer] (Italian)
[2017-07-22 14:41] LABS: BASO % 0.4 % (0.0-2.0); EOS % 0.9 % (0.0-4.0); HEMATOCRIT 27.9 % (34.0-47.0); LYMPH # 1.6 K/uL (1.0-4.3); LYMPH % 46.7 % (20.0-40.0); MEAN CELL VOLUME 107.2 fl (81.0-99.0); MEAN CORPUSCULAR HGB CONC 33.6 g/dL (33.0-37.0); MEAN PLATELET VOLUME 9.3 fl (7.2-11.7); MONO # 0.4 K/uL (0.0-0.8); MONO % 10.4 % (0.0-10.0); NEUT # 1.4 K/uL (1.8-7.0); NEUT % 41.6 % (50.0-75.0); NRBC % 0.1 % (0.0-0.0); RED CELL DISTRIBUTION WIDTH 16.9 % (11.5-14.5); WHITE BLOOD COUNT 3.4 K/uL (4.8-10.8)
[2017-07-22 14:50] LABS: ALB/GLOB RATIO 1.5 (1.0-2.1); ALKALINE PHOSPHATASE 70 U/L (38-126); ALT/SGPT 30 U/L (9-52); AST/SGOT 68 U/L (14-36); BILIRUBIN,TOTAL 1.2 mg/dl (0.2-1.3); BLOOD UREA NITROGEN 15 mg/dl (7-17); CALCIUM 8.9 mg/dL (8.4-10.2); CARBON DIOXIDE 28 mmol/L (22-30); CHLORIDE 108 mmol/L (98-107); GFR AFRICAN-AMERICAN > 60; GLUCOSE,RANDOM 98 mg/dL (65-105); SODIUM 144 mmol/l (132-148); TOTAL PROTEIN 6.7 G/DL (6.3-8.2)
--- NOTE | 2017-07-23 10:19 | CARD ---
APPROVED REPORT EKG Measurement Heart [id number] <Conclusion> Normal sinus rhythm Normal ECG
== END 2017-07-22 16:32 | disposition home or self-care (01) ==
LOC: H.ER 13:29
DX: K92.2 Gastrointestinal hemorrhage, unspecified (principal); D61.9 Aplastic anemia, unspecified
CPT/HCPCS: 80053; 85025; 85610; 93005; 96360; 96361; 99283; J7040

== ENCOUNTER 2017-09-19 06:56 | Emergency (ER) | payer OTHER ==
[2017-09-19 07:17] VITALS: BP 123/84; RESP 22; TEMP 97.9; O2SAT 99
[2017-09-19] MEDS ORDERED: Sodium Chloride 0.9% 1,000 ML IV STA (07:40)
--- NOTE | 2017-09-19 07:54 | ED PDOC ---
HPI: Headache Time Seen by Provider: 09/19/17 07:14 Chief Complaint (Nursing): Headache Chief Complaint (Provider): Headache History Per: Patient History/Exam Limitations: no limitations Onset/Duration Of Symptoms: Days (x4) Current Symptoms Are (Timing): Still Present Associated Symptoms: Nausea, Other (productive cough). denies: Vomiting Additional Complaint(s): Annamaria Schwartz is a 47 year old female, with a past medical history of aplastic anemia and Paroxysmal nocturnal hemoglobinuria, who presents to the emergency department complaining of a headache, and productive cough associated with congestion onset for 4 days. She also reports feeling nauseous. Patient states that she recently had an endoscopy done and was found to have H. pylori. She denies any fever, chills, blood in urine or vaginal bleeding. No further medical complaints. PMD: Dr. Vaughan Past Medical History Reviewed: Historical Data, Nursing Documentation, Vital Signs Vital Signs: Last Vital Signs Temp 97.9 F 09/19/17 07:12 Pulse 98 H 09/19/17 07:12 Resp 22 09/19/17 07:12 BP 123/84 09/19/17 07:12 Pulse Ox 99 09/19/17 07:12 - Medical History PMH: Anemia (Aplastic anemia), Deep Vein Thrombosis (right leg), Malignancy ( uterine cancer) Denies: Chronic Kidney Disease - Surgical History Surgical History: Endoscopy Other surgeries: Hysterectomy - Family History Family History: States: Unknown Family Hx - Social History Current smoker - smoking cessation education provided: No Alcohol: None Drugs: Denies - Home Medications Home Medications: Ambulatory Orders Medication Instructions Recorded Rivaroxaban [Xarelto] 20 mg PO DAILY 07/17/17 Aspirin [Adult Low Dose Aspirin EC] 81 mg PO DAILY 09/03/17 - Allergies Allergies/Adverse Reactions: Allergies Allergy/AdvReac Type Severity Reaction Status Date / Time Penicillins Allergy Unknown RASH Verified 09/19/17 07:11 Review of Systems ROS Statement: Except As Marked, All Systems Reviewed And Found Negative Constitutional: Negative for: Fever, Chills ENT: Positive for: Nose Congestion Respiratory: Positive for: Cough (productive), Sputum (yellow) Gastrointestinal: Positive for: Nausea Genitourinary Female: Negative for: Hematuria, Vaginal Bleeding Neurological: Positive for: Headache Physical Exam - Reviewed Nursing Documentation Reviewed: Yes Vital Signs Reviewed: Yes - Physical Exam Appears: Positive for: Well, Non-toxic, No Acute Distress Head Exam: Positive for: ATRAUMATIC, NORMAL INSPECTION, NORMOCEPHALIC Skin: Positive for: Normal Color, Warm, Dry Eye Exam: Positive for: EOMI, Normal appearance, PERRL ENT: Positive for: Normal ENT Inspection Neck: Positive for: Normal, Painless ROM, Supple Cardiovascular/Chest: Positive for: Regular Rate, Rhythm. Negative for: Murmur Respiratory: Positive for: Normal Breath Sounds. Negative for: Respiratory Distress Gastrointestinal/Abdominal: Positive for: Normal Exam, Bowel Sounds, Soft. Negative for: Tenderness, Guarding, Rebound Back: Positive for: Normal Inspection. Negative for: L CVA Tenderness, R CVA Tenderness Extremity: Positive for: Normal ROM. Negative for: Pedal Edema, Deformity, Swelling Neurologic/Psych: Positive for: Alert, Oriented. Negative for: Motor/Sensory Deficits - Laboratory Results Result Diagrams: 09/19/17 08:14 09/19/17 08:14 - ECG O2 Sat by Pulse Oximetry: 99 (RA) Pulse Ox Interpretation: Normal Medical Decision Making Medical Decision Making: Initial Impression: headache, anxiety Initial Plan: --Head w/o contrast [CT] --Basic Metabolic Panel --CBC w/ differential --Tylenol 325mg tab 650 mg PO --Pepcid 20 mg IVP --NS IV 1,000 ml @ 1,000 mls/hr --reevaluation Scribe Attestation: Documented by Oneil Zamora, acting as a scribe for Luzmaria Dawkins MD Provider Scribe Attestation: All medical record entries made by the Scribe were at my direction and personally dictated by me. I have reviewed the chart and agree that the record accurately reflects my personal performance of the history, physical exam, medical decision making, and the department course for this patient. I have also personally directed, reviewed, and agree with the discharge instructions and disposition. 10.00a - patient was able to rest and sleep after pepcid and tylenol. Her headache has resolved. She refused to go to CT stating that the lying flat in the tunnel would make things worse. She is awake and alert. Her speech is normal. Disposition - Clinical Impression Clinical Impression: Stress, Tension headache - Patient ED Disposition Is Patient to be Admitted: No Doctor Will See Patient In The: Office Counseled Patient/Family Regarding: Diagnosis, Need For Followup - Disposition Referrals: Javon Thompson [Outside] Disposition: Routine/Home Disposition Time: 09:50 Condition: IMPROVED Additional Instructions: Please followup with your primary care doctors and specialists for continued care. Instructions: Tension Headache (ED) Forms: Javon Du (Persian), [facility] ED School/Work Excuse - POA Present On Arrival: None
[2017-09-19 08:00] VITALS: PULSE 67
[2017-09-19 08:28] LABS: EOS % 0.9 % (0.0-4.0); HEMATOCRIT 28.4 % (34.0-47.0); LYMPH # 0.8 K/uL (1.0-4.3); LYMPH % 23.9 % (20.0-40.0); MEAN CELL VOLUME 107.6 fl (81.0-99.0); MEAN CORPUSCULAR HEMOGLOBIN 35.8 pg (27.0-31.0); MEAN CORPUSCULAR HGB CONC 33.2 g/dL (33.0-37.0); MEAN PLATELET VOLUME 9.7 fl (7.2-11.7); MONO # 0.4 K/uL (0.0-0.8); MONO % 10.6 % (0.0-10.0); NEUT # 2.2 K/uL (1.8-7.0); NEUT % 63.6 % (50.0-75.0); NRBC % 0.1 % (0.0-0.0); RED CELL DISTRIBUTION WIDTH 16.8 % (11.5-14.5); WHITE BLOOD COUNT 3.4 K/uL (4.8-10.8)
[2017-09-19 08:37] LABS: BLOOD UREA NITROGEN 14 mg/dl (7-17); CALCIUM 8.8 mg/dL (8.4-10.2); CARBON DIOXIDE 27 mmol/L (22-30); CHLORIDE 108 mmol/L (98-107); GFR AFRICAN-AMERICAN > 60; GLUCOSE,RANDOM 106 mg/dL (65-105); POTASSIUM 4.5 MMOL/L (3.6-5.0); SODIUM 142 mmol/l (132-148)
== END 2017-09-19 10:42 | disposition home or self-care (01) ==
LOC: H.ER 06:56
DX: G44.209 Tension-type headache, unspecified, not intractable (principal); F43.0 Acute stress reaction; D61.9 Aplastic anemia, unspecified; F41.9 Anxiety disorder, unspecified; Z79.82 Long term (current) use of aspirin; Z85.42 Personal history of malignant neoplasm of other parts of uterus; Z86.718 Personal history of other venous thrombosis and embolism; Z88.0 Allergy status to penicillin
CPT/HCPCS: 80048; 85025; 96374; 99284; J7040

== ENCOUNTER 2017-11-16 20:16 | Emergency (ER) | payer OTHER ==
[2017-11-16 21:36] VITALS: BP 135/72; PULSE 76; RESP 18; TEMP 98.3; O2SAT 98
--- NOTE | 2017-11-16 23:37 | ED PDOC ---
HPI: General Adult Time Seen by Provider: 11/16/17 22:38 Chief Complaint (Nursing): Abdominal Pain Chief Complaint (Provider): Nausea/Vomiting History Per: Patient History/Exam Limitations: no limitations Onset/Duration Of Symptoms: Hrs Current Symptoms Are (Timing): Still Present Additional Complaint(s): Annamaria Schwartz is a 47 year old female with a history of paroxysmal nocturnal hemoglobinuria (PNH) and deep-vein thrombosis, for which she takes Xarelta, that presents to the ED with a chief complaint of multiple episodes of vomiting , all of which were nonbloody and nonbilious, and were associated with headache and possible mild fever that she began experiencing earlier today. Patient denies any diarrhea, abdominal pain, rectal bleeding, cough, or throat pain. While in ED, patient reports that she only has mild nausea and a mild headache, but that due to her specific medical history her doctors advised her to come to the ED. Of Note: Patient is actively being treated for H. pylori, reports that she was started on Flagyl, Levaquin, and Omeprazole. She additionally reports a past history of aplastic anemia, which was associated with her PNH. No Bake Molder: Dr. Block (at [facility]) PMD: Dr. Vaughan Past Medical History Reviewed: Historical Data, Nursing Documentation, Vital Signs Vital Signs: Last Vital Signs Temp 98.3 F 11/16/17 21:30 Pulse 76 11/16/17 21:30 Resp 18 11/16/17 21:30 BP 135/72 11/16/17 21:30 Pulse Ox 98 11/17/17 02:16 - Medical History PMH: Anemia (Aplastic anemia), Deep Vein Thrombosis (right leg), Malignancy ( uterine cancer) Denies: Chronic Kidney Disease Other PMH: paroxysmal nocturnal hemoglobinuria (PNH), aplastic anemia - Surgical History Surgical History: Endoscopy, Tonsillectomy Other surgeries: hysterectomy - Family History Family History: States: Unknown Family Hx - Home Medications Home Medications: Ambulatory Orders Medication Instructions Recorded Rivaroxaban [Xarelto] 20 mg PO DAILY 07/17/17 Aspirin [Adult Low Dose Aspirin EC] 81 mg PO DAILY 09/03/17 - Allergies Allergies/Adverse Reactions: Allergies Allergy/AdvReac Type Severity Reaction Status Date / Time Penicillins Allergy Unknown RASH Verified 11/16/17 21:30 Review of Systems ROS Statement: Except As Marked, All Systems Reviewed And Found Negative Constitutional: Negative for: Fever ENT: Negative for: Throat Pain Respiratory: Negative for: Cough Gastrointestinal: Positive for: Nausea (mild), Vomiting (multiple episodes, nonbloody nonbilious OPHTHALMIC SURGEON in ED). Negative for: Abdominal Pain, Diarrhea, Other (denies rectal bleeding) Neurological: Positive for: Headache (mild) Physical Exam - Reviewed Nursing Documentation Reviewed: Yes Vital Signs Reviewed: Yes - Physical Exam Appears: Positive for: Non-toxic, No Acute Distress Head Exam: Positive for: ATRAUMATIC, NORMOCEPHALIC Skin: Positive for: Normal Color, Warm Eye Exam: Positive for: Normal appearance, EOMI, PERRL ENT: Positive for: Normal ENT Inspection Cardiovascular/Chest: Positive for: Regular Rate, Rhythm. Negative for: Murmur Respiratory: Positive for: Normal Breath Sounds. Negative for: Wheezing Gastrointestinal/Abdominal: Positive for: Normal Exam, Soft. Negative for: Tenderness Back: Positive for: Normal Inspection. Negative for: L CVA Tenderness, R CVA Tenderness Extremity: Positive for: Normal ROM. Negative for: Deformity, Swelling Neurologic/Psych: Positive for: Alert, Oriented. Negative for: Motor/Sensory Deficits - Laboratory Results Result Diagrams: 11/16/17 23:40 11/16/17 23:40 - ECG O2 Sat by Pulse Oximetry: 98 (RA) Pulse Ox Interpretation: Normal Medical Decision Making Medical Decision Making: Impression: Vomiting, ddx includes Gastritis vs. Pancreatitis, additionally considering Anemia, Leucopenia, UTI Plan: * EKG * CMP * CBC * PTT * PT * Reticulocyte count * Lipase * Zofran 4 mg IV * Reevaluation 2:11 Patient reports that she is feeling much better, that her headache is improved, and currently denies any vomiting or nausea. Labs reviewed, significantly better than baseline. Patient reports that she will follow up with her doctor at [facility] tomorrow. Stable for discharge home. Clinical Impression: Vomiting, Leucopenia, Anemia Scribe Attestation: Documented by Lashonda Welch, acting as a scribe for Phuc Isaac MD. Provider Scribe Attestation: All medical record entries made by the Scribe were at my direction and personally dictated by me. I have reviewed the chart and agree that the record accurately reflects my personal performance of the history, physical exam, medical decision making, and the department course for this patient. I have also personally directed, reviewed, and agree with the discharge instructions and disposition. Disposition - Clinical Impression Clinical Impression: Vomiting, Leucopenia, Anemia - Patient ED Disposition Is Patient to be Admitted: No Doctor Will See Patient In The: Office Counseled Patient/Family Regarding: Studies Performed, Diagnosis, Need For Followup - Disposition Referrals: Your, PCP [Other] Disposition: Routine/Home Disposition Time: 02:11 Condition: GOOD Additional Instructions: Return for worsening. take your medications as instructed. Follow up with your PCP in 2 days. Instructions: Gastritis (ED), Acute Nausea and Vomiting (ED)
[2017-11-16 23:54] LABS: BASO % 0.4 % (0.0-2.0); EOS % 0.1 % (0.0-4.0); HEMOGLOBIN 10.5 g/dL (12.0-16.0); LYMPH # 0.4 K/uL (1.0-4.3); LYMPH % 8.8 % (20.0-40.0); MEAN CORPUSCULAR HEMOGLOBIN 35.9 pg (27.0-31.0); MEAN CORPUSCULAR HGB CONC 33.9 g/dL (33.0-37.0); MEAN PLATELET VOLUME 9.3 fl (7.2-11.7); MONO # 0.2 K/uL (0.0-0.8); MONO % 5.5 % (0.0-10.0); NEUT # 3.7 K/uL (1.8-7.0); NEUT % 85.2 % (50.0-75.0); NRBC % 0.2 % (0.0-0.0); PLATELET COUNT 90 K/uL (130-400); RBC 2.92 Mil/uL (3.80-5.20); RED CELL DISTRIBUTION WIDTH 17.1 % (11.5-14.5); WHITE BLOOD COUNT 4.3 K/uL (4.8-10.8)
[2017-11-17 00:01] LABS: ALB/GLOB RATIO 1.4 (1.0-2.1); ALBUMIN 4.3 g/dL (3.5-5.0); ALT/SGPT 36 U/L (9-52); AST/SGOT 78 U/L (14-36); BLOOD UREA NITROGEN 15 mg/dl (7-17); CALCIUM 9.4 mg/dL (8.4-10.2); GFR AFRICAN-AMERICAN > 60; GFR NON-AFRICAN AMERICAN > 60; LIPASE 42 U/L (23-300)
[2017-11-17 00:14] LABS: PARTIAL THROMBOPLASTIN TIME 28.3 Seconds (25.6-37.1); PROTHROMBIN TIME 11.3 Seconds (9.8-13.1)
[2017-11-17 01:14] LABS: BASOPHIL 1 % (0-2); LYMPHOCYTE 8 % (20-50); MONOCYTE 6 % (0-10); NEUTROPHIL 84 % (42-75); PLATELET ESTIMATE SLIGHTLY DECREASED (NORMAL); REACTIVE LYMPHOCYTES 1 % (0-0); TOTAL CELLS COUNTED 100
[2017-11-17 01:15] LABS: ANISOCYTOSIS SLIGHT; LARGE PLATELETS PRESENT; POLYCHROMIC SLIGHT
[2017-11-17 01:16] LABS: OVALOCYTES SLIGHT; TEARDROP CELLS SLIGHT
[2017-11-17 01:17] LABS: HYPOCHROMIC SLIGHT
--- NOTE | 2017-11-17 09:29 | CARD ---
APPROVED REPORT EKG Measurement Heart [id number] <Conclusion> Normal sinus rhythm Nonspecific ST and T wave abnormality Abnormal ECG
== END 2017-11-17 02:46 | disposition home or self-care (01) ==
LOC: H.ER 20:16
DX: K29.70 Gastritis, unspecified, without bleeding (principal); D61.9 Aplastic anemia, unspecified; Z79.82 Long term (current) use of aspirin; Z85.42 Personal history of malignant neoplasm of other parts of uterus; Z86.718 Personal history of other venous thrombosis and embolism; Z88.0 Allergy status to penicillin; Z90.710 Acquired absence of both cervix and uterus; D72.819 Decreased white blood cell count, unspecified

== ENCOUNTER 2018-04-30 21:46 | Emergency (ER) | payer BC, OTHER ==
[2018-04-30 21:57] VITALS: BMI 28.0
[2018-04-30] MEDS ORDERED: Sodium Chloride 0.9% 500 ML IV STA (22:39)
--- NOTE | 2018-04-30 22:42 | ED PDOC ---
HPI: Hypertension/Hypotension Time Seen by Provider: 04/30/18 22:10 Chief Complaint (Nursing): High Blood Pressure Chief Complaint (Provider): hypertension History Per: Patient History/Exam Limitations: no limitations Onset/Duration Of Symptoms: Hrs Current Symptoms Are (Timing): Gone Now Associated Symptoms: Headache Additional Complaint(s): 47 y/o female history of aplastic anemia, paroxysmal nocturnal hemoglobinuria, hypertension presents for evaluation of elevated BP x 1 day. Patient reports waking up with mild headache; states when she checked her BP at [facility] it was 178/ 100 so she came to the ED; states she has not taken her Metoprolol medication in 2 weeks, took one after blood pressure read. Patient states when she saw her BP was normal here her headache resolved. Patient admits to feeling stressed at work and due to her ongoing diagnosis. Patient requesting labs to check her hemoglobin levels. Denies fever, headache, dizziness, vision changes , extremity numbness/weakness, chest pain, shortness of breath, palpitations, abdominal pain, leg pain/swelling. Past Medical History Reviewed: Historical Data, Nursing Documentation, Vital Signs Vital Signs: Last Vital Signs Temp 97.6 F 04/30/18 22:01 Pulse 87 04/30/18 22:01 Resp 19 04/30/18 22:01 BP 138/98 H 04/30/18 22:01 Pulse Ox 98 04/30/18 22:01 - Medical History PMH: Anemia (Aplastic anemia), Deep Vein Thrombosis (right leg), Malignancy ( uterine cancer) Denies: Chronic Kidney Disease - Surgical History Surgical History: Endoscopy, Tonsillectomy - Family History Family History: States: Unknown Family Hx - Home Medications Home Medications: Ambulatory Orders Medication Instructions Recorded Rivaroxaban [Xarelto] 20 mg PO DAILY 07/17/17 Aspirin [Adult Low Dose Aspirin EC] 81 mg PO DAILY 09/03/17 - Allergies Allergies/Adverse Reactions: Allergies Allergy/AdvReac Type Severity Reaction Status Date / Time Penicillins Allergy Unknown RASH Verified 11/16/17 21:30 Review of Systems ROS Statement: Except As Marked, All Systems Reviewed And Found Negative Physical Exam - Reviewed Nursing Documentation Reviewed: Yes Vital Signs Reviewed: Yes - Physical Exam Appears: Positive for: Well, Non-toxic, No Acute Distress (anxious-appearing) Head Exam: Positive for: ATRAUMATIC, NORMAL INSPECTION, NORMOCEPHALIC Skin: Positive for: Normal Color Eye Exam: Positive for: Normal appearance, EOMI, PERRL ENT: Positive for: Normal ENT Inspection Cardiovascular/Chest: Positive for: Regular Rate, Rhythm Respiratory: Positive for: Normal Breath Sounds Gastrointestinal/Abdominal: Positive for: Normal Exam Back: Positive for: Normal Inspection Extremity: Positive for: Normal ROM Neurologic/Psych: Positive for: Alert, Oriented (x3). Negative for: Motor/ Sensory Deficits - Laboratory Results Result Diagrams: 04/30/18 22:57 04/30/18 22:57 - ECG O2 Sat by Pulse Oximetry: 98 - Progress ED Course And Treament: labs, urine, IV fluids On re-eval, patient states she feels much better. Patient educated on findings, discharged with instructions to follow up PMD. Patient states she just finished course of antibiotics for UTI; denies symptoms currently. Will await culture results. Advised to take blood pressure medication as directed Return precautions given Disposition - Clinical Impression Clinical Impression: Hypertension, Stress - Patient ED Disposition Is Patient to be Admitted: No Counseled Patient/Family Regarding: Studies Performed, Diagnosis, Need For Followup - Disposition Disposition: Routine/Home Disposition Time: 00:13 Condition: IMPROVED Instructions: High Blood Pressure in Adults, Controlling Your Blood Pressure Through Lifestyle Forms: [employer] (Italian)
[2018-04-30 23:04] LABS: BASO % 0.8 % (0.0-2.0); EOS % 0.8 % (0.0-4.0); HEMOGLOBIN 9.5 g/dL (12.0-16.0); LYMPH # 1.7 K/uL (1.0-4.3); LYMPH % 47.9 % (20.0-40.0); MEAN CORPUSCULAR HEMOGLOBIN 37.4 pg (27.0-31.0); MEAN CORPUSCULAR HGB CONC 33.7 g/dL (33.0-37.0); MEAN PLATELET VOLUME 9.5 fl (7.2-11.7); MONO # 0.3 K/uL (0.0-0.8); MONO % 8.8 % (0.0-10.0); NEUT # 1.5 K/uL (1.8-7.0); NEUT % 41.7 % (50.0-75.0); RBC 2.52 Mil/uL (3.80-5.20); RED CELL DISTRIBUTION WIDTH 17.2 % (11.5-14.5); WHITE BLOOD COUNT 3.5 K/uL (4.8-10.8)
[2018-04-30 23:12] LABS: MEAN CELL VOLUME 111.1 fl (81.0-99.0)
[2018-04-30 23:13] LABS: ALB/GLOB RATIO 1.5 (1.0-2.1); ALBUMIN 4.1 g/dL (3.5-5.0); ALT/SGPT 28 U/L (9-52); AST/SGOT 101 U/L (14-36); BLOOD UREA NITROGEN 18 mg/dl (7-17); CALCIUM 8.8 mg/dL (8.4-10.2); GFR AFRICAN-AMERICAN > 60; GFR NON-AFRICAN AMERICAN > 60
[2018-05-01 00:05] LABS: SQUAMOUS EPITHIAL < 1 /hpf (0-5); URINE BILIRUBIN NEGATIVE (NEGATIVE); URINE BLOOD MODERATE (NEGATIVE); URINE CLARITY CLOUDY (Clear); URINE COLOR AMBER (YELLOW); URINE GLUCOSE (UA) NEG (Normal); URINE LEUKOCYTE ESTERASE LARGE Leu/uL (Negative); URINE PROTEIN NEGATIVE (NEGATIVE)
[2018-05-01 00:22] VITALS: BP 147/83; PULSE 84
[2018-05-01 02:49] VITALS: RESP 16; TEMP 98; O2SAT 100
== END 2018-05-01 00:55 | disposition home or self-care (01) ==
LOC: H.ER 21:46
DX: I10 Essential (primary) hypertension (principal); F43.0 Acute stress reaction; Z79.82 Long term (current) use of aspirin; Z85.42 Personal history of malignant neoplasm of other parts of uterus; Z86.718 Personal history of other venous thrombosis and embolism; Z88.0 Allergy status to penicillin
CPT/HCPCS: 80053; 81003; 81025; 85025; 87086; 99285; J7040